=== PATIENT | male | born 1995 | race Caucasian/White ===

== ENCOUNTER 2024-10-21 10:04 | Outpatient (OUT) | payer OTHER, BC, SELFPAY ==
[2024-10-21 11:16] LABS: Basophils Absolute Auto 0.1 10^3/uL (0.0-0.1); Basophils Percent Auto 1.7 % (0.2-2.0); Eosinophils Absolute Auto 0.2 10^3/uL (0.0-0.7); Eosinophils Percent Auto 3.5 % (0.9-7.0); Hematocrit 45.2 % (42.0-54.0); Hemoglobin 15.2 g/dL (14.0-18.0); Immature Granulocytes Abs Auto 0.09 10^3/uL (0.00-0.03); Immature Granulocytes Pct Auto 1.7 % (0.0-0.5); Lymphocytes Absolute Auto 1.3 10^3/uL (1.2-3.8); Lymphocytes Percent Auto 23.3 % (20.5-60.0); Mean Corpuscular HGB Conc 33.6 g/dL (29.9-35.2); Mean Corpuscular Hemoglobin 32.4 pg (25.9-34.0); Mean Corpuscular Volume 96.4 fL (80.0-94.0); Mean Platelet Volume 9.8 fL (9.5-13.5); Monocytes Absolute Auto 0.7 10^3/uL (0.3-0.8); Monocytes Percent Auto 11.9 % (1.7-12.0); Neutrophils Absolute Auto 3.2 10^3/uL (1.4-6.5); Neutrophils Percent Auto 57.9 % (43.0-75.0); Platelet Count 285 10^3/uL (150-450); Red Blood Count 4.69 10^6/uL (4.70-6.10); Red Cell Distribution Width 13.4 % (11.0-15.0); White Blood Count 5.5 10^3/uL (4.0-11.0)
[2024-10-21 11:21] LABS: Alanine Aminotransferase 132 U/L (16-63); Albumin Globulin Ratio 0.8; Albumin Level 3.7 g/dL (3.4-5.0); Alkaline Phosphatase 158 U/L (46-116); Anion Gap 9.4; Aspartate Amino Transferase 75 U/L (15-37); BUN Creatinine Ratio 9.3; Bilirubin Total 0.3 mg/dL (0.2-1.0); Calcium 9.7 mg/dL (8.5-10.1); Carbon Dioxide 34.7 mmol/L (21.0-32.0); Chloride 100 mmol/L (98-107); Estimated GFR (African America >60 (>=60 mL/min/1.73m^2); Estimated GFR (Non-African Ame >60 (>=60 mL/min/1.73m^2); Globulin 4.4 g/dL; Glucose 86 mg/dL (74-106); Potassium 4.1 mmol/L (3.5-5.1); Sodium 140 mmol/L (136-145); Total Protein 8.1 g/dL (6.4-8.2)
[2024-10-22 10:09] LABS: Vitamin B12 465 pg/mL (232-1245)
== END 2024-10-21 10:05 | disposition home or self-care (01) ==
LOC: LAB 10:05
PROVIDERS: PCP Nurse Practitioner; Visit Provider Nurse Practitioner Family
DX: F10.20 Alcohol dependence, uncomplicated (principal); F10.239 Alcohol dependence with withdrawal, unspecified; F43.12 Post-traumatic stress disorder, chronic
CPT/HCPCS: 36415; 80053; 82607; 82746; 85025

== ENCOUNTER 2025-01-23 18:24 | Emergency (ER) | payer OTHER, BC, SELFPAY ==
[2025-01-23 18:25] VITALS: BP 149/98; PULSE 122; TEMP 36.8; O2SAT 99; BMI 28.7
--- OUTSIDE RECORDS SUMMARY | 2025-01-23 18:30 | XMS_ITS | Encounter Summary ---
Author Organization [facility] Address [address] [place] [address] Care Team Providers Care Mechanical Design Drafter Name Role Phone Shailesh Cedillo MD Primary Care Provider [phone] Winifred Castillo DITCHING MACHINE OPERATING ENGINEER Unavailable [phone] Encounter Details Date Type Department Care Team (Late st Contact Info) Description 10/03/2023 Abstract [facility] [address] [place] [address] Winifred Castillo, DITCHING MACHINE OPERATING ENGINEER [address] [place] [address] Social History Tobacco Use Types Packs/Day Years Used Date Smoking Tobacco: Never Assessed Alcohol Use Standard Drinks/Week Comments Yes 42 (1 standard drink = 0.6 oz pu re alcohol) 6 pack every day of the week Sex and Gender Information Value Date Recorded Sex Assigned at Male 02/28/2024 9:41 AM EDT Legal Sex Male 6:45 PM EDT Gender Identity Male 02/28/2024 9:41 AM EDT Sexual Orientation Straight 02/28/2024 9: 41 AM EDT documented as of this encounter Plan of Treatment Not on file documented as of this encounter Visit Diagnoses Not on filedocumented in this encounter Care Teams Mechanical Design Drafter Relationship Specialty Start Date End Date Shailesh Cedillo MD [address] [place] [id number] PCP - General Family Medicine 09/27/23 Winifred Castillo NP [address] [place] [id number] Nurse Practitioner Family Medicine 09/27/23 documented as of this encounter
--- NOTE | 2025-01-23 18:34 | ED_ITS ---
HPI HPI - General Adult General Chief complaint: Psychiatric Symptoms Stated complaint: psychiatric symptoms Time Seen by Provider: 01/23/25 18:32 History of Present Illness HPI narrative: 29-year-old male presents because he wants to . He went to a police station today with the intent of them shooting him. He states he opened up a beer in their presence and started drinking it and he wanted them to shoot him. The patient seems to have a personal relationship with one of the officers and the patient was not shot but was transported here. He is unwilling to answer most questions. He is evasive and belligerent. Related Data Home Medications ?Medication ?Instructions ?Recorded ?Confirmed No Known Home Medications 01/23/2512/29 Allergies Allergy/AdvReac Type Severity Reaction Status Date / Time No Known Drug Allergies Allergy Verified 01/23/25 18:33 Review of Systems ROS Narrative Unobtainable, uncooperative Exam Narrative Exam Narrative: Nurses note and vital signs reviewed and patient is not hypoxic. General: The patient appears in no apparent respiratory distress. Speech is mildly slurred Skin: Warm, dry, no pallor noted. There is no rash noted. Head: Normocephalic, atraumatic Eye: Normal conjunctiva, no drainage Ears, Nose, Mouth, and Throat: oral mucosa is moist. Nares patent. Cardiovascular: Regular Rate and Rhythm Respiratory: Patient is in no distress, no accessory muscle use Back: Could not examine, patient GI: Could not examine patient uncooperative Musculoskeletal: All joints have full range of motion and he is ambulatory Neurological: He is awake and alert and seems to be oriented. Psychiatric: Uncooperative, belligerent Medical Decision Making [facility] Narrative Medical decision making narrative: This patient exhibited aggressive behavior. He would not answer my questions and was argumentative. On multiple occasions when I asked him questions he told me that I did not need to know that. At 1 point he stood up in a threatening manner and the panelboard tank pumper who accompanied him intervened and they were able to get him to sit back down. He has been pacing around the room. Tests are ordered and the patient is signed out to Dr. Sinha. Differential Diagnosis Differential Diagnosis: Suicidal ideation, alcohol intoxication Discharge Plan Discharge Patient Disposition: Still a Patient
--- NOTE | 2025-01-23 18:45 | ECG_ITS ---
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 Measurements Intervals [place] Rate: 119 P: 58 [place]: 174 QRS: 7 QRSD: 108 T: 55 QT: 314 QTc: 384 Interpretive Statements 1120 Sinus tachycardia 2440 Incomplete right bundle branch block abnormal ECG No previous ECG available for comparison Electronically Signed On 01-24-2025 18:02:14 EDT by PAIGE CHAVIRA M.D.
[2025-01-23 18:48] VITALS: PULSE 119
--- OUTSIDE RECORDS SUMMARY | 2025-01-23 18:55 | XMS_ITS | CCD ---
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 normal. Judgment: Judgment normal. ASSESSMENT AND PLAN: Follow up in about 3 months (around 12/30/2024) for Recheck. Problem List Items Addressed This Visit Subacute maxillary sinusitis - Primary Likely secondary infection from presumed covid infection Fluids, rest Finish atb Fu if not better In office flu/covid; negative Relevant Medications benzonatate (Tessalon) 200 MG capsule amoxicillin-clavulanate (Augmentin) 875-125 MG tablet Tobacco user The patient has been advised of the risks of continued smoking: stroke, [place], all forms of cancer, lung disease, and . Options for quitting smoking include: cold turkey, hypnosis, acupuncture, nicotine replacement meds (gum, lozenges, and patches), Buproprion, and Varenicline. At this time pt is encouraged to evaluate their goals for wanting to quit smoking, and reach out to provider when ready to start this process documented in this encounter [facility] Instructions 10-02-2024 Patient Instructions Note Date & Type Note Facility 10-02-2024 Instructions Winifred Castillo NP - 10/02/2024 2:40 PM EST Finish antibiotic for sinus infection You may take benzonate for cough, take with glass of water every 8hours as needed for cough Drink plenty of fluids, helps to loosen mucus Follow up if not better documented in this encounter [facility] Clinical Note 02-17-2022 Note Date & Type Note Facility 02-17-2022 [facility] Sperm Rapid Progressive February 17, 2022 4:25pm 51 % Clinical Note 02-17-2022 Note Date & Type Note Facility 02-17-2022 [facility] Sperm Non-Progressive February 17, 2022 4:25pm 15 % Evaluation note Note Date & Type Note Facility Evaluation note No assessment information availa [facility] Work Phone: Evaluation note Note Date & Type Note Facility Evaluation note Diagnosis Alcohol abuse with physiological dependence (CMS/HCC)- Primary Mixed anxiety and depressive disorder Dysthymic disorder Alcohol abuse with physiological dependence (CMS/HCC)- Primary Mixed anxiety and depressive disorder Dysthymic disorder Alcohol abuse with physiological dependence (CMS/HCC)- Primary Subacute maxillary sinusitis- Primary Tobacco user Tobacco use disorder documented in this encounter [facility] Summary Purpose Family History No Family History Records FoundNo Family History Records FoundNo Family History Records Found Advance Directives Advance Directive Response Recorded Date/ Time Advance Directives No February 17 3:41pm Chief Complaint and Reason for Visit Chief Complaint fertility Additional Source Comments (unrecognized sect ion and content) No Status Records FoundNo Status Records FoundNo Status Records Found INFORMATION SOURCE (unrecogn ized section and content) DATE CREATED AUTHOR 11/16/2018 [facility] DATE CREATED AUTHOR AUTHOR'S ORGANIZ ATION 02/26/2022 [facility] DATE CREATED AUTHOR AUTHOR'S ORGANIZ ATION 10/03/2024 [facility] Care Teams (unrecognized sec tion and content) Team Status: Inactive Member Role Status Dates Gunnar Hudson Attending Provider Active Back 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 Relationship Specialty Start Date End Date Shailesh Cedillo MD [address] [place] [phone] PCP - General Family Medicine 09/27/23 Winifred Castillo NP [address] [place] [id number] Nurse Practitioner Family Medicine 09/27/23 Back Shoe Cutter Relationship Specialty Start Date End Date Shailesh Cedillo MD [address] [place] [phone] PCP - General Family Medicine 09/27/23 Winifred Castillo NP [address] [place] [phone] Nurse Practitioner Family Medicine 09/27/23 Back Shoe Cutter Relationship Specialty Start Date End Date Shailesh Cedillo MD [address] [place] [phone] PCP - General Family Medicine 09/27/23 Winifred Castillo NP [address] [place] [address] Nurse Practitioner Family Medicine 09/27/23 Goals (unrecognized section and content) Goals may be documented in a n alternate section FOR RECORDS PERTAINING TO PATIENTS WHO ARE OR HAVE BEEN ENROLLED IN A CHEMICAL DEPENDENCY/SUBSTANCEABUSE PROGRAM, SOME INFORMATION MAY BE OMITTED. This clinical summary was aggregated from multiple sources. Caution should be exercised in using it in the provision of clinical care. This summary normalizes information from multiple sources, and as a consequence, information in this document may materially change the coding, format and clinical context of patient data. In addition, data may be omitted in some cases. CLINICAL DECISIONS SHOULD BE BASED ON THE PRIMARY CLINICAL RECORDS. [employer] provides no warranty or guarantee of the accuracy or completeness of information in this document.
[2025-01-23 19:01] LABS: Bilirubin Urine NEGATIVE (NEGATIVE); Blood Urine TRACE-I (NEGATIVE); Clarity Urine CLEAR (CLEAR); Color Urine LT. YELLOW (YELLOW); Glucose Urine UA NEGATIVE (NEGATIVE); Ketones Urine NEGATIVE (NEGATIVE); Leukocyte Esterase Urine NEGATIVE (NEGATIVE); Nitrite Urine NEGATIVE (NEGATIVE); Protein Urine 30 mg/dL (NEG/TRACE); Urobilinogen Urine 0.2 EU/dL (0.2-1.0)
[2025-01-23 19:01] LABS: Basophils Absolute Auto 0.1 10^3/uL (0.0-0.1); Eosinophils Percent Auto 0.3 % (0.9-7.0); Hematocrit 45.7 % (42.0-54.0); Hemoglobin 16.1 g/dL (14.0-18.0); Immature Granulocytes Abs Auto 0.07 10^3/uL (0.00-0.03); Immature Granulocytes Pct Auto 0.8 % (0.0-0.5); Lymphocytes Absolute Auto 3.3 10^3/uL (1.2-3.8); Lymphocytes Percent Auto 35.3 % (20.5-60.0); Mean Corpuscular HGB Conc 35.2 g/dL (29.9-35.2); Mean Corpuscular Hemoglobin 32.9 pg (25.9-34.0); Mean Corpuscular Volume 93.5 fL (80.0-94.0); Mean Platelet Volume 9.4 fL (9.5-13.5); Monocytes Absolute Auto 0.8 10^3/uL (0.3-0.8); Neutrophils Absolute Auto 5.1 10^3/uL (1.4-6.5); Neutrophils Percent Auto 54.6 % (43.0-75.0); Platelet Count 335 10^3/uL (150-450); Red Blood Count 4.89 10^6/uL (4.70-6.10); Red Cell Distribution Width 12.3 % (11.0-15.0); White Blood Count 9.3 10^3/uL (4.0-11.0)
[2025-01-23 19:13] LABS: Amphetamine Screen Urine NEGATIVE (NEGATIVE); Benzodiazepines Screen Urine NEGATIVE (NEGATIVE); Cannabinoid Screen Urine POSITIVE (NEGATIVE); Cocaine Screen Urine NEGATIVE (NEGATIVE); Methadone Screen Urine NEGATIVE (NEGATIVE); Methamphetamines Screen Urine NEGATIVE (NEGATIVE); Opiate Screen Urine NEGATIVE (NEGATIVE); Phencyclidine Screen Urine NEGATIVE (NEGATIVE); Tricyclic Antidepressant Urine NEGATIVE (NEGATIVE)
[2025-01-23 19:14] LABS: Barbiturates Screen Urine NEGATIVE (NEGATIVE); Buprenorphine Screen Urine NEGATIVE (NEGATIVE); Oxycodone Screen Urine NEGATIVE (NEGATIVE)
[2025-01-23 19:17] LABS: Anion Gap 19.5; BUN Creatinine Ratio 5.9; Calcium 9.5 mg/dL (8.5-10.1); Carbon Dioxide 23.2 mmol/L (21.0-32.0); Chloride 98 mmol/L (98-107); Estimated GFR (African America >60 (>=60 mL/min/1.73m^2); Estimated GFR (Non-African Ame >60 (>=60 mL/min/1.73m^2); Ethanol 247 mg/dL; Glucose 154 mg/dL (74-106); Potassium 3.7 mmol/L (3.5-5.1); Salicylate 3.9 mg/dL (<=19.9); Sodium 137 mmol/L (136-145)
[2025-01-23 19:18] LABS: Acetaminophen <2.0 ug/mL (10.0-30.0)
[2025-01-23 19:22] LABS: Bacteria Urine TRACE #/HPF (NONE SEEN); Crystals Seen? None Seen #/HPF (None Seen); Mucus Urine NONE SEEN (NONE SEEN); RBC Urine 0-2 #/HPF (0-2); Squamous Epithelial Cell Urine RARE #/LPF (NONE/RARE); WBC Urine NONE SEEN #/HPF (NONE SEEN)
[2025-01-23 19:23] LABS: Cast Seen? NONE SEEN #/LPF (NONE SEEN); Urine Culture Indicated NO
--- NOTE | 2025-01-23 19:39 | PC.NURSE ---
Pt presents to ER by Renny SHEPHERD On arrival patient is pacing room - PD unaware of patients name and birthday Pt does state to this nurse thaat today was the day to I want to get hurt even if I provoke it Pt then follows up by stating his intention was to go to the police department, drink a beer and initiate a fight that would result in them shooting them however 2 of the officers present the patient knew and they were able to talk him down Dr. Cummins entered the room and began questioning the patient Patient stands up from the bed numerous times towards Dr. Cummins while clenching fists and aggressively answering questions and arguing Police numerous times directed patient to sit back down, ,pt states to the officer I didn't want to do this shit man, I wanted you to take me out states, patient is being uncooperative and leaves room This nurse asked the patient if I could speak with him to which the patient agreed This nurse explained our mental health protocol and what we would be doing Pt agreed This nurse was able to obtain an EKG, labwork, and a urine sample from the patient Pt states he has tried meds and counseling but nothing works for him I explained he would need to speak with [facility] on the phone Pts was aware of his arrival due to PD notifying her This nurse asked the patient if he would want his to come back with him and he replied no absolutely not At this time patient was still pacing around the room and refused to sit down A few moments later PD asked me to bring his back per his request [facility] called at this time and patient spoke with La I took this opportunity to speak with his who told me that the patient had a poor upbringing with minimal family relations who all struggled with drugs and alcohol Pt had found his family members and also pt was a [employer] Per pt has ahd multiple suicide attempts and has told her when its his time to go he wants to go out by police I then walked patients back to his room where he accepted her and they are sitting together speaking at this time
--- NOTE | 2025-01-23 21:13 | PC.NURSE ---
Pt was never placed in paper scrubs as we did not have any availabe in the ER Pt was patted down by police and belongings given to security
[2025-01-23 21:39] VITALS: BP 118/86; PULSE 110; O2SAT 94
--- NOTE | 2025-01-23 21:40 | PC.NURSE ---
pt beginning to feel withdrawal symptoms Pt states that he drinks 15-20 16oz beers daily and has since 2019 Per counselor- pt is to be admitted to [facility] for detox as well as mental health evaluation Pt aware of this Pt throwing up - given zofran and agrees to treatment for the withdrawal symptoms as well
[2025-01-23 21:46] LABS: Alanine Aminotransferase 101 U/L (16-63); Albumin Level 4.5 g/dL (3.4-5.0); Alkaline Phosphatase 136 U/L (46-116); Aspartate Amino Transferase 70 U/L (15-37); Bilirubin Direct 0.1 mg/dL (0.0-0.2); Bilirubin Total 0.3 mg/dL (0.2-1.0); Globulin 4.5 g/dL
[2025-01-23] MEDS: ONDANSETRON 4 MG RAPDIS TABLET SL (21:51)
[2025-01-23] MEDS: NICOTINE 21 MG PATCH.TD24 TD (21:51)
[2025-01-23] MEDS: LORAZEPAM 1 MG TABLET 2 MG PO (21:51)
[2025-01-23 23:15] VITALS: BP 135/88
[2025-01-23 23:20] VITALS: O2SAT 93
[2025-01-23 23:30] VITALS: BP 132/79
== END 2025-01-23 23:50 ==
PROVIDERS: Emergency Medicine; Emergency Provider Internal Medicine; PCP Nurse Practitioner
DX: R45.851 Suicidal ideations (principal); F10.239 Alcohol dependence with withdrawal, unspecified; F10.229 Alcohol dependence with intoxication, unspecified; Y90.8 Blood alcohol level of 240 mg/100 ml or more
CPT/HCPCS: 36415; 80048; 80076; 80179; 80307; 80320; 80329; 81001; 85025; 93005; 99285; Q0162